=== PATIENT | female | born 1975 | race African-American/Black ===

== ENCOUNTER 2023-01-26 07:31 | Day surgery (SDC) | payer OTHER ==
[2023-01-21 12:45] VITALS: BMI 38.7
[2023-01-26 08:34] VITALS: RESP 16
[2023-01-26] MEDS ORDERED: PROPOFOL 80 ML ONE (10:04)
[2023-01-26 11:03] VITALS: TEMP 98.1
[2023-01-26 11:06] VITALS: BP 100/72; PULSE 62
== END 2023-01-26 11:20 | disposition home or self-care (01) ==
LOC: FASU-ENDO 07:31
PROVIDERS: ATTEND Internal Medicine Gastroenterology
PROC: 0DJD8ZZ Inspection of Lower Intestinal Tract, Via Natural or Artificial Opening Endoscopic (ICD-10-PCS; principal; 2023-01-26 10:09)
DX: Z12.11 Encounter for screening for malignant neoplasm of colon (principal); K57.30 Diverticulosis of large intestine without perforation or abscess without bleeding
CPT/HCPCS: 81025